=== PATIENT | female | born 1970 | race Caucasian/White ===

== ENCOUNTER 2021-03-07 07:35 | Emergency (ER) | payer OTHER ==
[~2021-03-07] VITALS: Ht 167.6 cm; Wt 83.8 kg
[2021-03-07 08:56] VITALS: BP 153/91
== END 2021-03-07 08:57 | disposition home or self-care (01) ==
LOC: ER 07:36
DX: M25.512 Pain in left shoulder (principal); I10 Essential (primary) hypertension
CPT/HCPCS: 71045; 93005; 99283